=== PATIENT | female | born 1995 | race Asian ===

== ENCOUNTER 2016-08-10 21:14 | Inpatient (IN) ==
[2016-08-10] MEDS ORDERED: AMBIEN PO PRN (21:23)
[2016-08-10] MEDS ORDERED: PEPCID PO PRN (21:23)
[2016-08-10] MEDS ORDERED: BRETHINE SUBQ PRN (21:23)
[2016-08-10] MEDS ORDERED: KEFZOL 1 GM/D5W 1 GM/50 ML IVPB IV PRN (21:23)
[2016-08-10] MEDS ORDERED: ZOFRAN IV PRN (21:23)
[2016-08-10] MEDS ORDERED: CYTOTEC VAG ONE (21:23)
[2016-08-10] MEDS ORDERED: PEPCID IV PRN (21:23)
[2016-08-10] MEDS ORDERED: STADOL IV PRN ×2 (21:23)
[2016-08-10] MEDS ORDERED: TYLENOL PO PRN (21:23)
[2016-08-10] MEDS ORDERED: PITOCIN 30 UNITS/LR 30 UNITS/500 ML IV.SOLN IV SCH (21:23)
[2016-08-10] MEDS: LR 1,000 ML IV ONE (22:28)
[2016-08-10 23:50] LABS: MANUAL DIFF NEEDED? NO
[2016-08-10 23:52] LABS: BASO% 0.1 % (0.0-0.8); EOS# 0.04 X1000 (0.0-0.7); EOS% 0.4 % (0.0-10.0); HEMATOCRIT 37.8 % (37.0-47.0); HEMOGLOBIN 12.4 g/dL (12.0-16.0); IMM GRAN# 0.02 X1000 (0.0-0.04); IMM GRAN% 0.2 % (0.0-0.5); LYMPH# 1.71 X1000 (1.2-3.4); MCH 32.9 PG (27-31); MCHC 32.8 g/dL (33-37); MCV 100.3 FL (81-99); MONO% 9.9 % (1.7-9.3); MPV 11.1 FL (7.4-10.4); NEUT% 72.4 % (42.2-75.2); PLT 160 X1000 (130-400); RBC 3.77 XMIL (4.2-5.4)
[2016-08-10] MEDS ORDERED: CYTOTEC ONE (23:53)
[2016-08-11] MEDS ORDERED: CYTOTEC VAG SCH (01:23)
[2016-08-11] MEDS: STADOL IV PRN ×2 (03:57→08:30)
[2016-08-11] MEDS ORDERED: LR 1,000 ML IV SCH (07:58)
[2016-08-11] MEDS: LR 1,000 ML IV ONE (07:59)
[2016-08-11] MEDS ORDERED: FENTANYL-BUPIV-NS 2 MCG-0.1% 200 ML EPIDURAL PRN (08:40)
[2016-08-11] MEDS ORDERED: MARCAINE 0.25% PF INJ ONE (08:45)
[2016-08-11] MEDS ORDERED: NS 1,000 ML SCH (10:45)
[2016-08-11] MEDS ORDERED: BICITRA PO ONE (12:00)
[2016-08-11] MEDS ORDERED: PEPCID IV ONE (12:00)
[2016-08-11] MEDS ORDERED: REGLAN IV ONE (12:00)
--- NOTE | 2016-08-11 13:24 | OB/GYN PROGRESS NOTE ---
Progress Note OB - . OB Progress Note: Vital Signs - 24 hr 08/11/16 00:00 08/11/16 03:35 08/11/16 07:00 Temperature 97.4 F L 98.1 F 96.4 F L Pulse Rate 75 67 57 L Respiratory Rate 18 18 16 Blood Pressure 107/71 118/69 117/69 O2 Sat by Pulse Oximetry 98 Laboratory Results - last 24 hr 08/10/16 08/10/16 22:20 22:20 WBC 10.07 RBC 3.77 L Hgb 12.4 Hct 37.8 MCV 100.3 H MCH 32.9 H MCHC 32.8 L RDW Std Deviation 14.9 H Plt Count 160 MPV 11.1 H Immature Gran % (Auto) 0.2 Neut % (Auto) 72.4 Lymph % (Auto) 17.0 L [place] % (Auto) 9.9 H Eos % (Auto) 0.4 Baso % (Auto) 0.1 Immature Gran # (Auto) 0.02 Neut # (Auto) 7.29 H Lymph # (Auto) 1.71 [place] # (Auto) 1.00 H Eos # (Auto) 0.04 Baso # (Auto) 0.01 RPR NON-REACTIVE Patient resting comfortably with no complaint Cervix: rim remaining per nurse FHT: Category 2; mostly early decels with occasional late decel/variable decel. Good variability A/P: 21yo @ 40w2d who underwent IOL, Category 2 tracing with good recovery -continue to monitor closely -recheck cervix @ 1:45pm -expect vaginal delivery Arline Rivera MD [employer] ARCHITECT
[2016-08-11] MEDS ORDERED: PITOCIN 20 UNITS/LR 20 UNITS/1,000 ML IV.SOLN ONE (17:02)
[2016-08-11] MEDS ORDERED: PITOCIN 20 UNITS/LR 20 UNITS/1,000 ML IV.SOLN IV SCH (17:07)
[2016-08-11] MEDS ORDERED: BENADRYL IV PRN (17:07)
[2016-08-11] MEDS ORDERED: PITOCIN IM PRN (17:07)
[2016-08-11] MEDS ORDERED: HYDROXYZINE PO PRN (17:07)
[2016-08-11] MEDS ORDERED: PERI MEDS (DERMOPLAST/NUPERCAINAL/TUCKS) MISC PRN (17:07)
[2016-08-11] MEDS ORDERED: MOTRIN PO PRN (17:07)
[2016-08-11] MEDS ORDERED: CYTOTEC PO PRN (17:07)
[2016-08-11] MEDS ORDERED: MINERAL OIL PO PRN (17:07)
[2016-08-11] MEDS ORDERED: PERCOCET-10 PO PRN (17:07)
[2016-08-11] MEDS ORDERED: PITOCIN 30 UNITS/LR 30 UNITS/500 ML IV.SOLN IV ONE (17:07)
[2016-08-11] MEDS ORDERED: BENADRYL PO PRN (17:07)
[2016-08-11] MEDS ORDERED: XYLOCAINE-MPF 1% INJ PRN (17:07)
[2016-08-11] MEDS ORDERED: PERCOCET-5 PO PRN (17:07)
[2016-08-11] MEDS ORDERED: HYDROXYZINE IM PRN (17:07)
[2016-08-11] MEDS ORDERED: AMBIEN PO PRN (17:07)
[2016-08-11] MEDS: PERICOLACE PO SCH (20:30)
[2016-08-12 06:11] LABS: MANUAL DIFF NEEDED? NO
[2016-08-12 07:31] LABS: BASO% 0.1 % (0.0-0.8); EOS# 0.05 X1000 (0.0-0.7); EOS% 0.4 % (0.0-10.0); HEMATOCRIT 30.3 % (37.0-47.0); HEMOGLOBIN 9.6 g/dL (12.0-16.0); IMM GRAN# 0.04 X1000 (0.0-0.04); IMM GRAN% 0.3 % (0.0-0.5); LYMPH# 1.69 X1000 (1.2-3.4); LYMPH% 12.6 % (20.5-51.1); MCH 32.1 PG (27-31); MCHC 31.7 g/dL (33-37); MCV 101.3 FL (81-99); MONO# 1.07 X1000 (0.11-0.59); MPV 11.3 FL (7.4-10.4); NEUT% 78.6 % (42.2-75.2); PLT 137 X1000 (130-400); RBC 2.99 XMIL (4.2-5.4)
--- NOTE | 2016-08-12 13:47 | OB/GYN PROGRESS NOTE ---
Progress Note OB - . OB Progress Note: Vital Signs - 24 hr 08/11/16 16:35 08/11/16 16:45 08/11/16 16:55 Temperature 98.3 F Pulse Rate 82 78 72 Respiratory Rate 18 18 16 Blood Pressure Blood Pressure [Left Arm] 121/72 129/78 122/72 O2 Sat by Pulse Oximetry 98 98 98 08/11/16 17:05 08/11/16 17:15 08/11/16 17:25 Temperature Pulse Rate 72 83 71 Respiratory Rate 16 16 16 Blood Pressure Blood Pressure [Left Arm] 130/65 120/76 114/69 O2 Sat by Pulse Oximetry 97 98 98 08/11/16 17:35 08/11/16 18:05 08/11/16 18:30 Temperature 98.5 F Pulse Rate 71 75 78 Respiratory Rate 16 16 16 Blood Pressure 119/73 97/64 107/60 Blood Pressure [Left Arm] 119/73 O2 Sat by Pulse Oximetry 98 99 100 08/11/16 19:06 08/11/16 19:52 08/11/16 21:00 Temperature 98.8 F Pulse Rate 75 91 H 80 Respiratory Rate 16 18 16 Blood Pressure 93/59 114/88 108/60 Blood Pressure [Left Arm] O2 Sat by Pulse Oximetry 98 99 99 08/11/16 23:48 08/12/16 00:00 08/12/16 03:57 Temperature 98.7 F 98.4 F Pulse Rate 80 99 H 78 Respiratory Rate 16 16 18 Blood Pressure 108/65 102/57 97/57 Blood Pressure [Left Arm] O2 Sat by Pulse Oximetry 99 99 99 08/12/16 08:30 08/12/16 12:00 Temperature 98.4 F 98.7 F Pulse Rate 88 102 H Respiratory Rate 16 18 Blood Pressure 98/52 114/68 Blood Pressure [Left Arm] O2 Sat by Pulse Oximetry 98 98 Laboratory Results - last 24 hr 08/12/16 04:44 WBC 13.40 H RBC 2.99 L Hgb 9.6 L D Hct 30.3 L MCV 101.3 H MCH 32.1 H MCHC 31.7 L RDW Std Deviation 14.9 H Plt Count 137 MPV 11.3 H Immature Gran % (Auto) 0.3 Neut % (Auto) 78.6 H Lymph % (Auto) 12.6 L [place] % (Auto) 8.0 Eos % (Auto) 0.4 Baso % (Auto) 0.1 Immature Gran # (Auto) 0.04 Neut # (Auto) 10.54 H Lymph # (Auto) 1.69 [place] # (Auto) 1.07 H Eos # (Auto) 0.05 Baso # (Auto) 0.01 Patient without complaint. Reports minimal bleeding. Tolerating diet. She is ambulating and voiding without difficulty. Pain is well controlled. Denies vaginal pain. Exam: Gen: NAD, alert Abd: soft, nontender, fundus firm and at the umbilicus Pelvis: minimal lochia rubra Ext: nontender, no edema, Homans- A/P: 21yo who is PPD#1 s/p , doing well -continue routine care -encourage ambulation -continue PO pain meds -regular diet -will perform circumcision -Dispo: home tomorrow Arline Rivera MD [employer] DISABLED CARER
--- NOTE | 2016-08-12 14:24 | OPERATIVE NOTE ---
PROCEDURE DATE: 08/11/2016 ADMISSION DIAGNOSIS: A 21-year-old, G1, P0, at 40 weeks and 2 days admitted for induction of labor. DELIVERY DATE: 08/11/2016. DELIVERY ROUTE: Spontaneous vaginal delivery. DELIVERING PHYSICIAN: Arline Rivera MD DELIVERY SUMMARY: This 21-year-old, G1, P0, at 40 weeks and 2 days underwent induction of labor, was found to be complete-complete +1 and with good maternal effort, patient went on to deliver by uncomplicated spontaneous vaginal delivery a male weighing 7 pounds, 8 ounces, with scores of 9 and 10. The baby was bulb suctioned at delivery and placed on mother's abdomen. The 3 vessel cord was clamped and cut. The placenta was delivered spontaneously intact. There was a second-degree perineal laceration and a right labial laceration that was repaired in the normal fashion. Good hemostasis was noted. Patient tolerated procedure well. Patient and were doing well in the delivery room. cc: Arline Rivera MD
[2016-08-12] MEDS: FERROUS SULFATE PO SCH (20:47)
[2016-08-12] MEDS: PERICOLACE PO SCH (20:47)
[2016-08-13 08:42] VITALS: BP 91/51
[2016-08-13] MEDS: FERROUS SULFATE PO SCH (08:44)
--- NOTE | 2016-09-22 18:15 | DISCHARGE SUMMARY ---
ADMISSION DATE: 08/10/2016 DISCHARGE DATE: 08/13/2016 ADMISSION DIAGNOSIS: A 21-year-old, 1 para 0 at 40 weeks 1 day admitted for induction of labor. DELIVERY DATE: 08/11/2016. DELIVERING PHYSICIAN: Dr. Arline Rivera. PROCEDURE: Spontaneous vaginal delivery. HOSPITAL COURSE: This 21-year-old, 1 para 0, at 40 weeks 1 day underwent induction of labor with subsequent spontaneous vaginal delivery at 40 weeks and 2 days. course was unremarkable and patient was discharged home day #2. PHYSICAL: General: No acute distress. Alert. Abdomen: Soft, nontender, fundus firm. Pelvic: Minimal lochia rubra. Extremities: Nontender, no edema, Erasto's- DISCHARGE MEDICATION: Ibuprofen. DISCHARGE INSTRUCTIONS: Nothing per vagina. Patient may shower and continue regular diet. FOLLOWUP: Patient to follow up with Dr. Rivera in clinic in 6 weeks. cc: Arline Rivera MD [facility]
== END 2016-08-13 13:25 | disposition home or self-care (01) ==
LOC: P.LD 21:14 → P.WC 08-11 17:59
PROVIDERS: ADMIT Student in an Organized Health Care Education/Training Program; ATTEND Student in an Organized Health Care Education/Training Program